=== PATIENT | male | born 1980 | race Caucasian/White ===

== ENCOUNTER 2018-07-26 17:18 | Emergency (ER) | payer BC ==
[~2018-07-26] VITALS: Ht 170.2 cm; Wt 83.9 kg
[2018-07-26 17:18] VITALS: BP_SYST 155
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
--- NOTE | 2018-07-26 17:18 | NUR ---
BROUGHT IN BY [facility], PLACED IN BED #5 AND TRIAGED. REPORT GIVEN TO JA
--- NOTE | 2018-07-26 17:42 | NUR ---
ER at bedside examining patient.
[2018-07-26] MEDS ORDERED: LORazepam 1 MG TABLET PO ONE (17:45)
--- NOTE | 2018-07-26 18:11 | NUR ---
Ativan 1mg PO given. Will reassess.
--- NOTE | 2018-07-26 18:35 | NUR ---
Patient reports feeling less anxious. His brother is currently at the bedside.
--- NOTE | 2018-07-26 19:08 | NUR ---
Report given to Nimo CHAWLA.
--- NOTE | 2018-07-26 19:13 | NUR ---
1912 - Received report from DENTON Torres. Pt found sitting up in angel, brother at bedside. Pt in no distress, resp even and unlabored. Pt states he feels much better, states tingling has resolved. States he feels ready to go home. Will inform Dr. Son.
[2018-07-26 19:30] VITALS: BP_SYST 152
--- NOTE | 2018-07-26 19:30 | NUR ---
1929 - Patient given written and verbal discharge instructions and verbalizes understanding. ER MD discussed with patient the results and treatment provided. Patient in stable condition. ID arm band removed. Rx of ativan given. Patient educated on pain management and to follow up with PMD. Pain Scale 0. Opportunity for questions provided and answered. Medication side effect fact sheet provided.
== END 2018-07-26 19:30 | disposition home or self-care (01) ==
LOC: SED 17:18
DX: F41.9 Anxiety disorder, unspecified (principal); R03.0 Elevated blood-pressure reading, without diagnosis of hypertension
CPT/HCPCS: 99283; 99284